=== PATIENT | female | born 1935 | race African-American/Black ===

== ENCOUNTER 2018-05-10 10:28 | Inpatient (IN) | payer MEDICAID, MEDICARE ==
[2018-05-10] VITALS (8 sets, daily range): BP systolic 90–124; BP diastolic 52–63
[~2018-05-10] VITALS: Ht 160 cm; Wt 99.5 kg
[~2018-05-10 10:28] MED LIST: LIDOCAINE HCL/PF 1% 2ML VIAL ONE
[2018-05-10] MEDS ORDERED: SODIUM CHLORIDE 0.9% 1000ML BAG (SEPSIS BOLUS) IV ONE (11:00)
[2018-05-10 11:38] LABS: BASOPHILS % 0.6 % (0.0-2.0); EOSINOPHILS % 0.4 % (0.0-5.0); HEMATOCRIT. 26.4 % (36.0-48.0); HEMOGLOBIN. 8.7 g/dL (12.0-16.0); MEAN CORPUSCULAR HEMOGLOBIN 30.9 pg (28.0-32.0); MEAN CORPUSCULAR VOLUME 94.1 fL (81.0-99.0); MEAN PLATELET VOLUME 8.8 fl (7.4-10.4); MONOCYTES % 5.2 % (2.0-8.0); NEUTROPHILS % 41.8 % (40.0-76.0); PLATELET 67 x1000/uL (130-400); RED BLOOD CELL COUNT 2.81 mill/uL (4.2-5.4); RED CELL DISTRIBUTION WIDTH 18.9 % (11.6-14.6)
[2018-05-10 11:43] LABS: CHLORIDE 107 mEq/L (98-107)
[2018-05-10 11:46] LABS: INR 1.1; PROTHROMBIN TIME 11.8 sec (9.4-11.6)
[2018-05-10] MEDS ORDERED: PIPERACILLIN/TAZ 3.375G PREMIX 50 ML IV ONE (13:15)
[2018-05-10] MEDS ORDERED: VANCOMYCIN 1 G PREMIX 200 ML IV ONE (13:15)
[2018-05-10] MEDS ORDERED: ALBUTEROL (0.083%) 2.5MG/3ML NEB HHN ONE (13:45)
[2018-05-10] MEDS ORDERED: DEXTROSE 50% WATER 50ML SYRINGE IV ONE (13:45)
[2018-05-10] MEDS ORDERED: INSULIN REGULAR (HUMULIN R) 300UNITS/3ML IV ONE (13:45)
[2018-05-10 16:00] LABS: CLARITY URINE CLEAR (CLEAR); COLOR URINE DARK YELLOW (YELLOW); KETONES URINE TRACE (NEGATIVE); LEUKOCYTE ESTERASE URINE NEGATIVE (NEGATIVE); NITRITE URINE NEGATIVE (NEGATIVE); OCCULT BLOOD URINE NEGATIVE (NEGATIVE); PROTEIN URINE NEGATIVE (NEGATIVE)
[2018-05-10] MEDS ORDERED: DIPHENHYDRAMINE 50MG/ML VIAL IV PRN (19:15)
[2018-05-10] MEDS ORDERED: ONDANSETRON HCL 4MG/2ML VIAL IV PRN (19:15)
[2018-05-10] MEDS ORDERED: DEXTROSE 50% WATER 50ML SYRINGE IV PRN (19:15)
[2018-05-10] MEDS ORDERED: CLONIDINE 0.1MG TABLET PO PRN (19:15)
[2018-05-10] MEDS ORDERED: ACETAMINOPHEN 325MG TABLET PO PRN (19:15)
[2018-05-10] MEDS ORDERED: PIPERACILLIN/TAZ 3.375G PREMIX 50 ML IV SCH (20:30)
[2018-05-10] MEDS ORDERED: LEVOFLOXACIN 750MG PREMIX 150 ML IV SCH ×2 (21:00→21:45)
[2018-05-10] MEDS: INSULIN LISPRO 100 UNITS/ML SUBCUT SCH (21:00)
[2018-05-10 21:13] LABS: T4 FREE 1.39 ng/dL (0.76-1.46)
[2018-05-10] MEDS: INSULIN GLARGINE UD 100 UNITS/ML SYR SUBCUT SCH (21:13)
[2018-05-10] MEDS: BLOOD SUGAR DIAGNOSTIC STRIP TEST SCH (21:13)
[2018-05-10] MEDS ORDERED: LEVOFLOXACIN 250MG TABLET PO SCH (21:15)
[2018-05-10] MEDS ORDERED: DIGOXIN 500MCG/2ML AMP IV NR (21:45)
[2018-05-10] MEDS ORDERED: VANCOMYCIN 1 G PREMIX 200 ML IV NR (22:00)
[2018-05-10] MEDS: LEVOFLOXACIN 750MG PREMIX 150 ML IV SCH (22:15)
[2018-05-10] MEDS: DEXT 5%/0.45% NACL 1000ML 1,000 ML IV SCH (22:16)
[2018-05-10] MEDS ORDERED: RIVA3CAP3 PO (22:54)
[2018-05-10] MEDS ORDERED: METO-385 PO (22:54)
[2018-05-10] MEDS ORDERED: LISI40TA4 PO (22:54)
[2018-05-10] MEDS ORDERED: METF500T6 PO (22:54)
[2018-05-11] VITALS (16 sets, daily range): BP systolic 87–132; BP diastolic 47–70
[2018-05-11] MEDS: DEXT 5%/0.45% NACL 1000ML 1,000 ML IV SCH ×2 (06:38→21:48)
[2018-05-11] MEDS: BLOOD SUGAR DIAGNOSTIC STRIP TEST SCH ×4 (07:30→21:47)
[2018-05-11] MEDS: INSULIN LISPRO 100 UNITS/ML SUBCUT SCH ×4 (08:00→21:00)
[2018-05-11] MEDS: INSULIN GLARGINE UD 100 UNITS/ML SYR SUBCUT SCH ×2 (10:00→21:51)
[2018-05-11] MEDS: VANCOMYCIN 750 MG PREMIX 150 ML IV SCH (10:25)
[2018-05-11 11:20] LABS: CHLORIDE 110 mEq/L (98-107)
[2018-05-11 11:24] LABS: HEMATOCRIT. 22.1 % (36.0-48.0); HEMOGLOBIN. 7.3 g/dL (12.0-16.0); MEAN CORPUSCULAR HEMOGLOBIN 31.3 pg (28.0-32.0); MEAN CORPUSCULAR VOLUME 94.3 fL (81.0-99.0); MEAN PLATELET VOLUME 9.6 fl (7.4-10.4); RED BLOOD CELL COUNT 2.34 mill/uL (4.2-5.4); RED CELL DISTRIBUTION WIDTH 19.4 % (11.6-14.6)
[2018-05-11 11:35] LABS: PHOSPHORUS 2.7 mg/dL (2.5-4.9)
[2018-05-11 12:10] LABS: PLATELET 31 x1000/uL (130-400)
[2018-05-11 12:44] LABS: NUCLEATED RED BLOOD CELLS 8 /100 WBC
[2018-05-11 12:46] LABS: PLATELET ESTIMATE MARKEDLY DECREASED
[2018-05-11] MEDS ORDERED: IOHEXOL-350 100 ML BOTTLE ONE (15:18)
[2018-05-11] MEDS: DIGOXIN 500MCG/2ML AMP IV SCH (18:38)
[2018-05-12] VITALS (19 sets, daily range): BP systolic 102–129; BP diastolic 47–72
[2018-05-12] MEDS: DEXT 5%/0.45% NACL 1000ML 1,000 ML IV SCH ×2 (01:24→12:00)
[2018-05-12] MEDS ORDERED: VANCOMYCIN 1250MG in DEXTROSE 5% WATER 250ML IV SCH (06:00)
[2018-05-12 06:34] LABS: MEAN CORPUSCULAR HEMOGLOBIN 31.9 pg (28.0-32.0); MEAN PLATELET VOLUME 9.9 fl (7.4-10.4); RED BLOOD CELL COUNT 2.21 mill/uL (4.2-5.4); RED CELL DISTRIBUTION WIDTH 19.1 % (11.6-14.6)
[2018-05-12] MEDS: INSULIN LISPRO 100 UNITS/ML SUBCUT SCH ×4 (08:00→20:45)
[2018-05-12 08:02] LABS: CHLORIDE 109 mEq/L (98-107)
[2018-05-12 08:10] LABS: PLATELET 27 x1000/uL (130-400)
[2018-05-12] MEDS: BLOOD SUGAR DIAGNOSTIC STRIP TEST SCH ×3 (08:11→20:45)
[2018-05-12 08:16] LABS: PHOSPHORUS 2.3 mg/dL (2.5-4.9)
[2018-05-12] MEDS: VANCOMYCIN 750 MG PREMIX 150 ML IV SCH (09:08)
[2018-05-12] MEDS: INSULIN GLARGINE UD 100 UNITS/ML SYR SUBCUT SCH ×2 (10:35→21:03)
[2018-05-12] MEDS ORDERED: LIDOCAINE HCL 1% 20ML VIAL (Pyxis) INJ ONE (12:44)
[2018-05-12] MEDS ORDERED: IOHEXOL-300 100 ML BOTTLE ONE (12:44)
[2018-05-12] MEDS ORDERED: SODIUM BICARBONATE 4% (2.4MEQ) 5ML VIAL IV ONE (12:44)
[2018-05-12 13:48] LABS: ATYPICAL LYMPHOCYTES 4; NUCLEATED RED BLOOD CELLS 7 /100 WBC
[2018-05-12 13:49] LABS: PLATELET ESTIMATE MARKEDLY DECREASED
[2018-05-12] MEDS: DIGOXIN 500MCG/2ML AMP IV SCH (18:46)
[2018-05-12] MEDS: LEVOFLOXACIN 750MG PREMIX 150 ML IV SCH (21:01)
[2018-05-13] VITALS (11 sets, daily range): BP systolic 94–142; BP diastolic 55–70
[2018-05-13] MEDS: DEXT 5%/0.45% NACL 1000ML 1,000 ML IV SCH (05:44)
[2018-05-13] MEDS: BLOOD SUGAR DIAGNOSTIC STRIP TEST SCH ×4 (05:45→21:25)
[2018-05-13] MEDS: INSULIN LISPRO 100 UNITS/ML SUBCUT SCH ×4 (05:45→21:00)
[2018-05-13] MEDS: VANCOMYCIN 750 MG PREMIX 150 ML IV SCH (08:55)
[2018-05-13 10:14] LABS: INR 1.1; PROTHROMBIN TIME 11.7 sec (9.4-11.6)
[2018-05-13] MEDS: INSULIN GLARGINE UD 100 UNITS/ML SYR SUBCUT SCH ×2 (10:17→21:39)
[2018-05-13 10:45] LABS: HEMATOCRIT. 28.6 % (36.0-48.0); HEMOGLOBIN. 9.4 g/dL (12.0-16.0); MEAN CORPUSCULAR HEMOGLOBIN 30.5 pg (28.0-32.0); MEAN CORPUSCULAR VOLUME 92.6 fL (81.0-99.0); MEAN PLATELET VOLUME 10.6 fl (7.4-10.4); RED BLOOD CELL COUNT 3.08 mill/uL (4.2-5.4); RED CELL DISTRIBUTION WIDTH 18.2 % (11.6-14.6)
[2018-05-13 10:53] LABS: PLATELET 28 x1000/uL (130-400)
[2018-05-13 12:54] LABS: NUCLEATED RED BLOOD CELLS 14 /100 WBC
[2018-05-13 12:55] LABS: PLATELET ESTIMATE MARKEDLY DECREASED
[2018-05-13] MEDS: DIGOXIN 250MCG TABLET PO SCH (17:07)
[2018-05-13] MEDS ORDERED: DIGOXIN 125MCG TABLET PO SCH (18:00)
[2018-05-13] MEDS: METOPROLOL TARTRATE 25MG TABLET PO SCH (21:34)
[2018-05-14] VITALS: BP 103/40
[2018-05-14 04:00] VITALS: BP 110/44
[2018-05-14] MEDS: INSULIN LISPRO 100 UNITS/ML SUBCUT SCH ×4 (05:59→20:44)
[2018-05-14] MEDS: BLOOD SUGAR DIAGNOSTIC STRIP TEST SCH ×4 (05:59→20:43)
[2018-05-14 08:00] VITALS: BP 136/54
[2018-05-14 09:08] LABS: IMMUNOGLOBULIN A 550 mg/dL (64-422); IMMUNOGLOBULIN G 1868 mg/dL (700-1600); IMMUNOGLOBULIN M 87 mg/dL (26-217)
[2018-05-14] MEDS: METOPROLOL TARTRATE 25MG TABLET PO SCH ×2 (09:31→20:43)
[2018-05-14] MEDS: INSULIN GLARGINE UD 100 UNITS/ML SYR SUBCUT SCH (09:31)
[2018-05-14 12:00] VITALS: BP 116/59
[2018-05-14 16:00] VITALS: BP 115/55
[2018-05-14] MEDS: DIGOXIN 250MCG TABLET PO SCH (18:07)
[2018-05-14] MEDS: DEXT 5%/0.45% NACL 1000ML 1,000 ML IV SCH ×2 (18:07)
[2018-05-14 20:00] VITALS: BP 115/56
[2018-05-15] VITALS: BP 115/56
[2018-05-15] MEDS: INSULIN GLARGINE UD 100 UNITS/ML SYR SUBCUT SCH ×3 (00:40→21:32)
[2018-05-15 04:00] VITALS: BP 151/70
[2018-05-15] MEDS: INSULIN LISPRO 100 UNITS/ML SUBCUT SCH ×4 (07:15→21:00)
[2018-05-15] MEDS ORDERED: PROPOFOL 200MG/20ML VIAL IV ONE (07:50)
[2018-05-15] MEDS ORDERED: LIDOCAINE HCL/PF 1% 10 MG/ML 5ML VIAL ONE (07:50)
[2018-05-15 10:15] VITALS: BP 133/72
[2018-05-15] MEDS: BLOOD SUGAR DIAGNOSTIC STRIP TEST SCH ×4 (10:59→21:26)
[2018-05-15] MEDS: METOPROLOL TARTRATE 25MG TABLET PO SCH ×2 (11:24→21:29)
[2018-05-15 12:00] VITALS: BP 137/93
[2018-05-15] MEDS: DEXT 5%/0.45% NACL 1000ML 1,000 ML IV SCH (18:35)
[2018-05-15] MEDS: DIGOXIN 250MCG TABLET PO SCH (18:44)
[2018-05-15 20:00] VITALS: BP 124/82
[2018-05-16] VITALS: BP 138/68
[2018-05-16 04:00] VITALS: BP 138/68
[2018-05-16] MEDS: INSULIN LISPRO 100 UNITS/ML SUBCUT SCH ×4 (06:19→20:57)
[2018-05-16] MEDS: BLOOD SUGAR DIAGNOSTIC STRIP TEST SCH ×5 (06:19→20:57)
[2018-05-16 08:00] VITALS: BP 138/52
[2018-05-16] MEDS: METOPROLOL TARTRATE 25MG TABLET PO SCH ×2 (09:23→20:55)
[2018-05-16 12:00] VITALS: BP 129/70
[2018-05-16] MEDS: DEXT 5%/0.45% NACL 1000ML 1,000 ML IV SCH (13:22)
[2018-05-16 16:00] VITALS: BP 124/73
[2018-05-16] MEDS: DIGOXIN 250MCG TABLET PO SCH (18:57)
[2018-05-16 20:00] VITALS: BP 127/67
[2018-05-17 00:19] VITALS: BP 132/84
[2018-05-17 04:00] VITALS: BP 132/49
[2018-05-17] MEDS: DEXT 5%/0.45% NACL 1000ML 1,000 ML IV SCH ×2 (05:44→11:26)
[2018-05-17] MEDS: BLOOD SUGAR DIAGNOSTIC STRIP TEST SCH ×3 (06:11→17:09)
[2018-05-17] MEDS: INSULIN LISPRO 100 UNITS/ML SUBCUT SCH ×3 (06:28→17:10)
[2018-05-17 08:00] VITALS: BP 138/64
[2018-05-17] MEDS: METOPROLOL TARTRATE 25MG TABLET PO SCH (09:15)
[2018-05-17 12:00] VITALS: BP 103/73
[2018-05-17 14:33] VITALS: BP 103/73
== END 2018-05-17 17:15 | disposition hospice, home (50) | DRG 853 ==
LOC: ER 10:52 → 5EST 14:27 → EDBEDREQ 14:31 → EDBEDREQSVC 14:31 → ENRESERV 15:01 → 5WST 05-12 17:02
PROVIDERS: ADMIT Internal Medicine; ATTEND Internal Medicine
PROC: 06H03DZ Insertion of Intraluminal Device into Inferior Vena Cava, Percutaneous Approach (ICD-10-PCS; 2018-05-12)
PROC: B5191ZA Fluoroscopy of Inferior Vena Cava using Low Osmolar Contrast, Guidance (ICD-10-PCS; 2018-05-12)
PROC: 30233N1 Transfusion of Nonautologous Red Blood Cells into Peripheral Vein, Percutaneous Approach (ICD-10-PCS; 2018-05-13)
PROC: 07DQ3ZX Extraction of Sternum Bone Marrow, Percutaneous Approach, Diagnostic (ICD-10-PCS; principal; 2018-05-15 07:30)
DX: A41.9 Sepsis, unspecified organism (principal); E43 Unspecified severe protein-calorie malnutrition; G93.41 Metabolic encephalopathy; I63.9 Cerebral infarction, unspecified; N17.9 Acute kidney failure, unspecified; D61.818 Other pancytopenia; C92.00 Acute myeloblastic leukemia, not having achieved remission; I82.403 Acute embolism and thrombosis of unspecified deep veins of lower extremity, bilateral; I69.351 Hemiplegia and hemiparesis following cerebral infarction affecting right dominant side; Z51.5 Encounter for palliative care; L89.212 Pressure ulcer of right hip, stage 2; E87.5 Hyperkalemia; L89.159 Pressure ulcer of sacral region, unspecified stage; E11.9 Type 2 diabetes mellitus without complications; I48.91 Unspecified atrial fibrillation; E66.01 Morbid (severe) obesity due to excess calories; F03.90 Unspecified dementia, unspecified severity, without behavioral disturbance, psychotic disturbance, mood disturbance, and anxiety; I10 Essential (primary) hypertension; I25.10 Atherosclerotic heart disease of native coronary artery without angina pectoris; Z95.810 Presence of automatic (implantable) cardiac defibrillator; Z68.38 Body mass index [BMI] 38.0-38.9, adult
CPT/HCPCS: 36415; 37191; 38220; 70450; 71045; 71275; 80048; 80053; 80162; 80202; 81003; 82784; 82962; 83036; 83605; 83735; 84100; 84134; 84439; 84443; 85025; 85060; 85097; 85384; 85610; 86334; 86850; 86900; 86920; 87040; 87086; 88313; 92610; 93005; 93306; 93970; 94640; 96365; 96375; 97161; 99285; C1725; C1766; C1769; C1880; J1160; J1644; J1815; J1956; J2543; J2704; J3370; J3490; J7030; J7050; J7060; J7611; P9016; Q9967